=== PATIENT | male | born 1995 | race African-American/Black ===

== ENCOUNTER 2018-08-14 05:45 | Day surgery (SDC) | payer OTHER ==
[~2018-08-14] VITALS: Ht 160 cm; Wt 61.2 kg
[2018-08-14] MEDS ORDERED: XOPENEX HF45 MCG/ACT IN (06:12)
[2018-08-14 10:25] VITALS: BP 111/75
== END 2018-08-14 11:47 | DRG 352 ==
LOC: ORM 05:45
PROVIDERS: ATTEND Surgery
PROC: 0YU50JZ Supplement Right Inguinal Region with Synthetic Substitute, Open Approach (ICD-10-PCS; principal; 2018-08-14)
DX: K40.90 Unilateral inguinal hernia, without obstruction or gangrene, not specified as recurrent (principal)
CPT/HCPCS: C9290